=== PATIENT | female | born 1950 | race Caucasian/White ===

== ENCOUNTER 2017-07-28 10:26 | Emergency (ER) | payer MEDICARE, MEDICAID ==
[~2017-07-28] VITALS: Ht 167.6 cm; Wt 64.5 kg
[~2017-07-28 10:26] MED LIST: BISA5TAB10 PO; BUSP10TA10 PO; CHOL100046 PO; CLON1TAB4 PO; DOCU250C96 PO; FLO0.1T PO; MELA3TAB PO; METO25TA6 PO; MILN50TA PO; NAPR-56 PO; NITR0.4T48 SL; NITR0.4T51 SL; OLAN5TAB29 PO; PANT40TA4 PO; POLY17PO10 PO; SUMA25TA9 PO; TOP25T PO; TRAM50TA2 PO; TRAZ-146 PO; VALA500T37 PO; [UNRECOGNIZED DRUG - OTHER] PEG
[2017-07-28 11:02] LABS: BASOPHILS % (AUTO) 0.6 % (0-1); EOSINOPHILS % (AUTO) 0.4 % (0-6); HEMATOCRIT 34.4 % (35.0-45.0); HEMOGLOBIN 11.4 g/dl (12.0-16.0); LYMPHOCYTES # (AUTO) 1.4 X10'3 (1.1-4.8); LYMPHOCYTES % (AUTO) 25.7 % (21-51); MEAN CORPUSCULAR HEMOGLOBIN 26.8 PG (27.0-31.0); MEAN CORPUSCULAR HGB CONC 33.2 % (33.0-36.5); MEAN CORPUSCULAR VOLUME 80.9 FL (78-98); MEAN PLATELET VOLUME 7.9 FL (7.4-10.4); MONOCYTES # (AUTO) 0.3 X10'3 (0-0.9); MONOCYTES % (AUTO) 6.4 % (2-12); NEUTROPHILS # (AUTO) 3.6 X10'3 (1.8-7.7); NEUTROPHILS % (AUTO) 66.9 % (42-75); PLATELET COUNT 184 X10'3 (140-440); RED BLOOD COUNT 4.26 X10'6 (4.20-5.60); RED CELL DISTRIBUTION WIDTH 15.6 % (11.5-14.5); WHITE BLOOD COUNT 5.4 X10'3 (4.5-11.0)
[2017-07-28 11:13] LABS: PARTIAL THROMBOPLASTIN TIME 25 SECONDS (22-32); PROTHROMBIN TIME 10.4 SECONDS (9.0-12.0)
[2017-07-28 11:19] LABS: ALANINE AMINOTRANSFERASE 38 U/L (12-78); ALBUMIN 3.7 G/DL (3.4-5.0); ALBUMIN/GLOBULIN RATIO 1.2 (1.1-1.5); ALKALINE PHOSPHATASE 78 IU/L (46-116); ANION GAP 12 (8-16); ASPARTATE AMINO TRANSFERASE 29 U/L (10-37); BILIRUBIN,TOTAL 0.2 MG/DL (0.1-1.0); BLOOD UREA NITROGEN 13 MG/DL (7-18); BUN/CREATININE RATIO 15.9 (6.6-38.0); CALCIUM 8.8 MG/DL (8.5-10.1); CHLORIDE 108 MMOL/L (99-107); CREATININE 0.82 MG/DL (0.40-0.90); GLUCOSE 150 MG/DL (70-104); POTASSIUM 3.4 MMOL/L (3.5-5.1); SODIUM 142 MMOL/L (135-145); TOTAL CARBON DIOXIDE 22.3 MMOL/L (24-32); TOTAL PROTEIN 6.7 G/DL (6.4-8.2); eGFR 70 ML/MIN
[2017-07-28] MEDS ORDERED: clonazePAM 1mg tablet PO ONE (11:40)
[2017-07-28] MEDS ORDERED: CLON-527 PO (11:41)
[2017-07-28] MEDS ORDERED: acetaminophen 325mg tablet PO ONE (13:00)
[2017-07-28 13:27] VITALS: BP 113/77
== END 2017-07-28 13:38 | disposition home or self-care (01) ==
LOC: ER 10:27
DX: S81.811A Laceration without foreign body, right lower leg, initial encounter (principal); R07.89 Other chest pain; F19.239 Other psychoactive substance dependence with withdrawal, unspecified; G62.9 Polyneuropathy, unspecified; I25.10 Atherosclerotic heart disease of native coronary artery without angina pectoris; I10 Essential (primary) hypertension; J44.9 Chronic obstructive pulmonary disease, unspecified; K21.9 Gastro-esophageal reflux disease without esophagitis; G89.29 Other chronic pain; Z86.73 Personal history of transient ischemic attack (TIA), and cerebral infarction without residual deficits; Z98.890 Other specified postprocedural states; Z87.442 Personal history of urinary calculi; Z79.899 Other long term (current) drug therapy; Z88.8 Allergy status to other drugs, medicaments and biological substances; Z88.2 Allergy status to sulfonamides; Z88.5 Allergy status to narcotic agent; Z88.6 Allergy status to analgesic agent; Z91.013 Allergy to seafood; W19.XXXA Unspecified fall, initial encounter; Y93.89 Activity, other specified; Y92.099 Unspecified place in other non-institutional residence as the place of occurrence of the external cause; Y99.9 Unspecified external cause status
CPT/HCPCS: 12002; 36415; 71045; 80053; 84484; 85025; 85610; 85730; 93005; 99285; A6449

== ENCOUNTER 2017-08-06 17:58 | Emergency (ER) | payer MEDICARE, MEDICAID ==
[~2017-08-06] VITALS: Ht 167.6 cm; Wt 73.3 kg
[~2017-08-06 17:58] MED LIST changes: +CLON-527 PO
[2017-08-06 19:18] LABS: CLARITY,URINE CLEAR (Clear); COLOR,URINE STRAW (Yellow); GLUCOSE, URINE NEGATIVE (Neg); KETONES,URINE NEGATIVE (Neg); LEUKOCYTE ESTERASE ,URINE NEGATIVE (Neg); NITRITES, URINE NEGATIVE (Neg); OCCULT BLOOD,URINE NEGATIVE (Neg); PH,URINE 5.5 (4.8-8.0); PROTEIN,URINE NEGATIVE (Neg); UA COLLECTION TYPE FOLEY CATH; UROBILINOGEN,URINE 0.2 E.U/dL (0.2-1.0)
[2017-08-06] MEDS ORDERED: acetaminophen 325mg tablet PO ONE (19:55)
[2017-08-06 20:04] VITALS: BP 135/64
== END 2017-08-06 20:06 | disposition home or self-care (01) ==
LOC: ER 17:59
DX: R33.9 Retention of urine, unspecified (principal); J02.9 Acute pharyngitis, unspecified; G62.9 Polyneuropathy, unspecified; I25.10 Atherosclerotic heart disease of native coronary artery without angina pectoris; I10 Essential (primary) hypertension; J44.9 Chronic obstructive pulmonary disease, unspecified; K21.9 Gastro-esophageal reflux disease without esophagitis; G89.29 Other chronic pain; Z86.73 Personal history of transient ischemic attack (TIA), and cerebral infarction without residual deficits; Z87.442 Personal history of urinary calculi; Z98.890 Other specified postprocedural states; Z79.899 Other long term (current) drug therapy; Z88.8 Allergy status to other drugs, medicaments and biological substances; Z88.6 Allergy status to analgesic agent; Z88.2 Allergy status to sulfonamides; Z88.5 Allergy status to narcotic agent; Z91.013 Allergy to seafood
CPT/HCPCS: 51702; 81003; 99284; A4315

== ENCOUNTER 2017-11-18 17:21 | Emergency (ER) | payer MEDICARE, MEDICAID ==
[~2017-11-18] VITALS: Ht 167.6 cm; Wt 76.8 kg
[2017-11-18] MEDS ORDERED: DOXE50CA4 PO (20:34)
[2017-11-18] MEDS ORDERED: metoclopramide 5 mg/ml inj IM ONE (21:15)
[2017-11-18] MEDS ORDERED: diphenhydrAMINE 50 mg/ml inj IM ONE (21:15)
[2017-11-18] MEDS ORDERED: benztropine 1mg tablet PO ONE (22:15)
[2017-11-18] MEDS ORDERED: SUMAtriptan succ. 6 MG/0.5ml vial SQ ONE (23:05)
[2017-11-18 23:35] VITALS: BP 145/74
[2017-11-18] MEDS ORDERED: LORazepam 1 MG tablet PO ONE (23:50)
== END 2017-11-19 01:19 | disposition home or self-care (01) ==
LOC: ER 17:22
DX: R51 Headache (principal); G62.9 Polyneuropathy, unspecified; I10 Essential (primary) hypertension; I25.10 Atherosclerotic heart disease of native coronary artery without angina pectoris; J44.9 Chronic obstructive pulmonary disease, unspecified; K21.9 Gastro-esophageal reflux disease without esophagitis; G89.29 Other chronic pain; Z87.442 Personal history of urinary calculi; Z86.73 Personal history of transient ischemic attack (TIA), and cerebral infarction without residual deficits; Z98.890 Other specified postprocedural states; Z85.9 Personal history of malignant neoplasm, unspecified; Z60.2 Problems related to living alone; Z88.8 Allergy status to other drugs, medicaments and biological substances; Z88.2 Allergy status to sulfonamides; Z88.5 Allergy status to narcotic agent; Z91.013 Allergy to seafood; Z79.899 Other long term (current) drug therapy
CPT/HCPCS: 70450; 93005; 96372; 99284; J1200; J2765; J3030

== ENCOUNTER 2018-05-06 16:27 | Emergency (ER) | payer MEDICARE, MEDICAID ==
[~2018-05-06] VITALS: Ht 167.6 cm; Wt 73.6 kg
[~2018-05-06 16:27] MED LIST changes: +ACET-2144 PO; -BISA5TAB10 PO; -BUSP10TA10 PO; +BUSP30TA3; +CHOL10002 PO; -CHOL100046 PO; -CLON1TAB4 PO; +DOXE50CA4 PO; +MELO-102 PO; -NAPR-56 PO; -NITR0.4T48 SL; +OLAN10TA19 PO; -OLAN5TAB29 PO; +OMEP40CA37 PO; -PANT40TA4 PO; -POLY17PO10 PO; +SUMA25TA35 PO; -SUMA25TA9 PO; -TOP25T PO; -TRAM50TA2 PO; -TRAZ-146 PO; -[UNRECOGNIZED DRUG - OTHER] PEG
[2018-05-06] MEDS ORDERED: albuterol 1.25 MG/3 ML (1/2 strength) nebule NEB ONE (17:05)
[2018-05-06 17:10] LABS: ALANINE AMINOTRANSFERASE 22 U/L (12-78); ALBUMIN 3.1 G/DL (3.4-5.0); ALBUMIN/GLOBULIN RATIO 0.7 (1.1-1.5); ALKALINE PHOSPHATASE 282 IU/L (46-116); ANION GAP 13 (8-16); ASPARTATE AMINO TRANSFERASE 30 U/L (10-37); BILIRUBIN,TOTAL 0.4 MG/DL (0.1-1.0); BLOOD UREA NITROGEN 10 MG/DL (7-18); BUN/CREATININE RATIO 10.8 (6.6-38.0); CALCIUM 9.3 MG/DL (8.5-10.1); CHLORIDE 106 MMOL/L (99-107); CREATININE 0.93 MG/DL (0.40-0.90); GLUCOSE 139 MG/DL (70-104); POTASSIUM 4.1 MMOL/L (3.5-5.1); SODIUM 142 MMOL/L (135-145); TOTAL CARBON DIOXIDE 23.4 MMOL/L (24-32); TOTAL PROTEIN 7.4 G/DL (6.4-8.2); eGFR 61 ML/MIN
[2018-05-06 17:13] LABS: BASOPHILS % (AUTO) 0.2 % (0-1); EOSINOPHILS # (AUTO) 0.1 X10'3 (0-0.9); EOSINOPHILS % (AUTO) 0.4 % (0-6); HEMATOCRIT 30.1 % (35.0-45.0); HEMOGLOBIN 9.6 g/dl (12.0-16.0); LYMPHOCYTES # (AUTO) 0.8 X10'3 (1.1-4.8); LYMPHOCYTES % (AUTO) 5.9 % (21-51); MEAN CORPUSCULAR HEMOGLOBIN 23.7 PG (27.0-31.0); MEAN CORPUSCULAR HGB CONC 31.8 % (33.0-36.5); MEAN CORPUSCULAR VOLUME 74.6 FL (78-98); MEAN PLATELET VOLUME 7.5 FL (7.4-10.4); MONOCYTES # (AUTO) 0.3 X10'3 (0-0.9); MONOCYTES % (AUTO) 2.4 % (2-12); NEUTROPHILS # (AUTO) 12.3 X10'3 (1.8-7.7); NEUTROPHILS % (AUTO) 91.1 % (42-75); PLATELET COUNT 320 X10'3 (140-440); RED BLOOD COUNT 4.04 X10'6 (4.20-5.60); RED CELL DISTRIBUTION WIDTH 18.9 % (11.5-14.5); WHITE BLOOD COUNT 13.5 X10'3 (4.5-11.0)
[2018-05-06 17:16] LABS: PARTIAL THROMBOPLASTIN TIME 29 SECONDS (22-32); PROTHROMBIN TIME 9.9 SECONDS (9.0-12.0)
[2018-05-06] MEDS ORDERED: albuterol 2.5 MG/3 ML nebule NEB ONE (17:20)
[2018-05-06] MEDS ORDERED: diphenhydrAMINE 50 mg/ml inj IV ONE (18:45)
[2018-05-06] MEDS ORDERED: normal saline 1000ML IV soln IVB ONE (18:45)
[2018-05-06] MEDS ORDERED: LEVO500T89 PO (18:58)
[2018-05-06 19:34] VITALS: BP 132/72
== END 2018-05-06 19:35 | disposition home or self-care (01) ==
LOC: ER 16:28
DX: J18.9 Pneumonia, unspecified organism (principal); R51 Headache; I10 Essential (primary) hypertension; I25.10 Atherosclerotic heart disease of native coronary artery without angina pectoris; J44.9 Chronic obstructive pulmonary disease, unspecified; K21.9 Gastro-esophageal reflux disease without esophagitis; G89.29 Other chronic pain; Z86.73 Personal history of transient ischemic attack (TIA), and cerebral infarction without residual deficits; Z88.2 Allergy status to sulfonamides; Z91.013 Allergy to seafood; Z88.5 Allergy status to narcotic agent; Z88.6 Allergy status to analgesic agent; Z88.8 Allergy status to other drugs, medicaments and biological substances; Z79.2 Long term (current) use of antibiotics; Z79.899 Other long term (current) drug therapy; Z60.2 Problems related to living alone
CPT/HCPCS: 36415; 70450; 71045; 80053; 84484; 85025; 85610; 85730; 93005; 94760; 99285

== ENCOUNTER 2018-05-10 15:05 | Inpatient (IN) | payer MEDICARE, MEDICAID ==
[~2018-05-10] VITALS: Ht 167.6 cm; Wt 74.0 kg
[~2018-05-10 15:05] MED LIST changes: +LEVO500T89 PO
[2018-05-10 15:45] LABS: BASOPHILS % (AUTO) 0.2 % (0-1); EOSINOPHILS # (AUTO) 0.2 X10'3 (0-0.9); EOSINOPHILS % (AUTO) 1.2 % (0-6); HEMATOCRIT 27.5 % (35.0-45.0); HEMOGLOBIN 8.6 g/dl (12.0-16.0); LYMPHOCYTES # (AUTO) 0.7 X10'3 (1.1-4.8); MEAN CORPUSCULAR HEMOGLOBIN 23.1 PG (27.0-31.0); MEAN CORPUSCULAR HGB CONC 31.1 % (33.0-36.5); MEAN CORPUSCULAR VOLUME 74.3 FL (78-98); MEAN PLATELET VOLUME 6.7 FL (7.4-10.4); MONOCYTES # (AUTO) 0.4 X10'3 (0-0.9); MONOCYTES % (AUTO) 2.9 % (2-12); NEUTROPHILS % (AUTO) 90.7 % (42-75); PLATELET COUNT 380 X10'3 (140-440); RED CELL DISTRIBUTION WIDTH 20.7 % (11.5-14.5); WHITE BLOOD COUNT 13.3 X10'3 (4.5-11.0)
[2018-05-10] MEDS ORDERED: albuterol 2.5 MG/3 ML nebule NEB ONE (16:00)
[2018-05-10 16:02] LABS: ALBUMIN 2.3 G/DL (3.4-5.0); ALBUMIN/GLOBULIN RATIO 0.5 (1.1-1.5); ALKALINE PHOSPHATASE 267 IU/L (46-116); ANION GAP 11 (8-16); ASPARTATE AMINO TRANSFERASE 24 U/L (10-37); BILIRUBIN,TOTAL 0.3 MG/DL (0.1-1.0); BLOOD UREA NITROGEN 18 MG/DL (7-18); BUN/CREATININE RATIO 20.2 (6.6-38.0); CALCIUM 8.5 MG/DL (8.5-10.1); CHLORIDE 105 MMOL/L (99-107); CREATININE 0.89 MG/DL (0.40-0.90); GLUCOSE 156 MG/DL (70-104); SODIUM 140 MMOL/L (135-145); TOTAL CARBON DIOXIDE 23.6 MMOL/L (24-32); TOTAL PROTEIN 6.6 G/DL (6.4-8.2); eGFR 64 ML/MIN
[2018-05-10 16:03] LABS: ELLIPTOCYTES FEW; INR 1.2 INR; PARTIAL THROMBOPLASTIN TIME 26 SECONDS (22-32); PLATELET ESTIMATE NORMAL; POLYCHROMASIA FEW; PROTHROMBIN TIME 12.1 SECONDS (9.0-12.0); TEAR DROP CELLS FEW
[2018-05-10 16:04] LABS: HYPOCHROMASIA 1+
[2018-05-10 16:10] LABS: ALANINE AMINOTRANSFERASE 8 U/L (12-78)
[2018-05-10] MEDS ORDERED: potassium Cl 40MEQ/NS 500ml 500 ML IV PRN ×2 (16:30)
[2018-05-10] MEDS ORDERED: magnesium Cl slow-release 64mg tablet PO PRN (16:30)
[2018-05-10] MEDS ORDERED: magnesium 1gm/100ml D5W IVPB 100 ML IV PRN (16:30)
[2018-05-10] MEDS ORDERED: potassium Cl 20 mEq SR tablet PO PRN ×2 (16:30)
[2018-05-10] MEDS ORDERED: magnesium 4gm in 100ml NS 100 ML IV PRN (16:30)
[2018-05-10] MEDS: K and/or MAG REPLACEMENT MC SCH (16:30)
[2018-05-10] MEDS: normal saline 1000ml 1,000 ML IV SCH (16:55)
[2018-05-10] MEDS: acetaminophen 325mg tablet PO PRN (16:56)
[2018-05-10 17:02] LABS: D-DIMER 0.91 MG/L FEU (0-0.50)
[2018-05-10] MEDS: CefTRIAXone/D5W-Rocephin 1gm 50 ML IV SCH (17:06)
[2018-05-10] MEDS: azithromycin/NS 500mg/250ml 250 ML IV SCH (17:56)
[2018-05-10 19:10] VITALS: BP 114/40
[2018-05-10] MEDS ORDERED: FLUO40CA PO (20:04)
[2018-05-10] MEDS ORDERED: OLAN5TAB29 PO (20:04)
[2018-05-10] MEDS ORDERED: BUSP15TA12 PO (20:04)
[2018-05-10] MEDS ORDERED: CARB-87 PO (20:05)
[2018-05-10] MEDS ORDERED: DOXE100C21 PO (20:05)
[2018-05-10] MEDS: heparin, porcine 5000 units/ml vial SQ SCH (20:09)
[2018-05-10] MEDS: SUMAtriptan 25 MG tablet PO PRN (21:36)
[2018-05-10] MEDS: HYDROmorphone 1 mg/ml syringe IV PRN (23:04)
[2018-05-11 00:01] VITALS: BP 122/55
[2018-05-11] MEDS: doxepin 25mg capsule PO SCH ×2 (00:30→21:17)
[2018-05-11] MEDS: carbidoba-levodopa 25-100mg tablet PO SCH ×4 (00:31→21:20)
[2018-05-11] MEDS: clonazePAM 1mg tablet PO SCH ×4 (00:31→21:19)
[2018-05-11] MEDS: ipratropium/albuterol 3ml nebule NEB PRN ×3 (02:24→19:05)
[2018-05-11 02:40] VITALS: BP 117/45
[2018-05-11] MEDS: normal saline 1000ml 1,000 ML IV SCH ×3 (04:33→18:42)
[2018-05-11] MEDS: HYDROmorphone 1 mg/ml syringe IV PRN ×2 (04:47→15:07)
[2018-05-11 06:45] LABS: BASOPHILS % (AUTO) 0.2 % (0-1); EOSINOPHILS # (AUTO) 0.3 X10'3 (0-0.9); EOSINOPHILS % (AUTO) 2.9 % (0-6); HEMATOCRIT 25.4 % (35.0-45.0); HEMOGLOBIN 7.9 g/dl (12.0-16.0); LYMPHOCYTES # (AUTO) 1.3 X10'3 (1.1-4.8); LYMPHOCYTES % (AUTO) 13.5 % (21-51); MEAN CORPUSCULAR HEMOGLOBIN 23.1 PG (27.0-31.0); MEAN CORPUSCULAR HGB CONC 31.1 % (33.0-36.5); MEAN CORPUSCULAR VOLUME 74.4 FL (78-98); MEAN PLATELET VOLUME 6.7 FL (7.4-10.4); MONOCYTES # (AUTO) 0.4 X10'3 (0-0.9); MONOCYTES % (AUTO) 4.3 % (2-12); NEUTROPHILS # (AUTO) 7.6 X10'3 (1.8-7.7); NEUTROPHILS % (AUTO) 79.1 % (42-75); PLATELET COUNT 359 X10'3 (140-440); RED BLOOD COUNT 3.42 X10'6 (4.20-5.60); RED CELL DISTRIBUTION WIDTH 20.1 % (11.5-14.5); WHITE BLOOD COUNT 9.6 X10'3 (4.5-11.0)
[2018-05-11 06:52] LABS: ANION GAP 12 (8-16); BLOOD UREA NITROGEN 8 MG/DL (7-18); BUN/CREATININE RATIO 10.5 (6.6-38.0); CALCIUM 8.4 MG/DL (8.5-10.1); CHLORIDE 110 MMOL/L (99-107); CREATININE 0.76 MG/DL (0.40-0.90); GLUCOSE 105 MG/DL (70-104); MAGNESIUM 1.9 MG/DL (1.5-2.4); POTASSIUM 3.7 MMOL/L (3.5-5.1); SODIUM 145 MMOL/L (135-145); TOTAL CARBON DIOXIDE 23.1 MMOL/L (24-32); eGFR 76 ML/MIN
[2018-05-11 07:27] LABS: ANISOCYTOSIS 2+; ELLIPTOCYTES FEW; PLATELET ESTIMATE NORMAL
[2018-05-11] MEDS ORDERED: OLANZapine 5mg rapidly disint. tablet PO SCH (08:00)
[2018-05-11] MEDS: K and/or MAG REPLACEMENT MC SCH (08:00)
[2018-05-11 08:04] VITALS: BP 125/54
[2018-05-11] MEDS: CefTRIAXone/D5W-Rocephin 1gm 50 ML IV SCH (08:47)
[2018-05-11] MEDS: metoprolol tartrate 25mg tablet PO SCH (08:52)
[2018-05-11] MEDS: busPIRone 15mg tablet PO SCH ×2 (08:53→21:19)
[2018-05-11] MEDS: FLUoxetine 20mg capsule PO SCH (08:54)
[2018-05-11] MEDS: heparin, porcine 5000 units/ml vial SQ SCH ×2 (08:57→21:21)
[2018-05-11] MEDS: pantoprazole 40mg Tablet.DR PO SCH (10:34)
[2018-05-11] MEDS: azithromycin/NS 500mg/250ml 250 ML IV SCH (10:36)
[2018-05-11] MEDS: traMADol 50MG tablet PO PRN ×2 (10:36→18:42)
[2018-05-11 12:13] VITALS: BP 97/43
[2018-05-11 13:22] VITALS: BP 154/104
[2018-05-11 16:45] LABS: ABG BASE EXCESS -2.6 mmol/L (-2.0-3.0); ABG HCO3 21.3 mmol/L (22.0-26.0); ABG OXYGEN SATURATION 93.9 % (95-98); ABG PCO2 (T) 33.4 mmHg (32.0-45.0); ABG PH (T) 7.423 (7.350-7.450); ABG PO2 (T) 71.2 mmHg (83-108); ALLEN'S TEST Positive; FCOHb 0.5 % (0.5-1.5); FLOW 2 L/min; FMetHb 0.3 % (0.3-1.12); FO2Hb 93.1 % (94-100); TOTAL HEMOGLOBIN 8.7 G/dl (12.0-16.0)
[2018-05-11] MEDS: acetaminophen 325mg tablet PO PRN (17:03)
[2018-05-11 20:00] VITALS: BP 102/42
[2018-05-11] MEDS: lactobacillus rhamnosus 10,000 MMU CELLS/CAPSULE PO SCH (21:15)
[2018-05-11] MEDS: OLANZapine 5mg rapidly disint. tablet PO SCH (21:21)
[2018-05-11] MEDS ORDERED: methylPREDNISolone sod succ/PF 40mg inj. IV ONE (22:30)
[2018-05-12] VITALS: BP 111/50
[2018-05-12] MEDS: ipratropium/albuterol 3ml nebule NEB PRN ×3 (01:29→19:05)
[2018-05-12] MEDS: piperacillin/tazo 3.375gm/50ml 50 ML IV SCH ×4 (01:30→21:28)
[2018-05-12] MEDS: HYDROmorphone 1 mg/ml syringe IV PRN ×3 (05:53→17:08)
[2018-05-12] MEDS: normal saline 1000ml 1,000 ML IV SCH ×2 (05:53→21:16)
[2018-05-12 06:11] LABS: BASOPHILS % (AUTO) 0 % (0-1); EOSINOPHILS % (AUTO) 0 % (0-6); HEMATOCRIT 25.9 % (35.0-45.0); HEMOGLOBIN 8.1 g/dl (12.0-16.0); LYMPHOCYTES # (AUTO) 0.5 X10'3 (1.1-4.8); LYMPHOCYTES % (AUTO) 5.1 % (21-51); MEAN CORPUSCULAR HGB CONC 31.1 % (33.0-36.5); MEAN PLATELET VOLUME 6.9 FL (7.4-10.4); MONOCYTES % (AUTO) 0.5 % (2-12); NEUTROPHILS # (AUTO) 9.2 X10'3 (1.8-7.7); NEUTROPHILS % (AUTO) 94.4 % (42-75); PLATELET COUNT 418 X10'3 (140-440); RED BLOOD COUNT 3.51 X10'6 (4.20-5.60); RED CELL DISTRIBUTION WIDTH 20.3 % (11.5-14.5); WHITE BLOOD COUNT 9.8 X10'3 (4.5-11.0)
[2018-05-12 06:18] LABS: ANION GAP 12 (8-16); BLOOD UREA NITROGEN 6 MG/DL (7-18); BUN/CREATININE RATIO 8.7 (6.6-38.0); CALCIUM 8.4 MG/DL (8.5-10.1); CHLORIDE 106 MMOL/L (99-107); CREATININE 0.69 MG/DL (0.40-0.90); GLUCOSE 178 MG/DL (70-104); MAGNESIUM 1.8 MG/DL (1.5-2.4); POTASSIUM 3.7 MMOL/L (3.5-5.1); SODIUM 140 MMOL/L (135-145); TOTAL CARBON DIOXIDE 22.1 MMOL/L (24-32); eGFR 85 ML/MIN
[2018-05-12] MEDS: K and/or MAG REPLACEMENT MC SCH (07:30)
[2018-05-12 07:41] LABS: ANISOCYTOSIS 2+; PLATELET ESTIMATE NORMAL
[2018-05-12 07:42] LABS: HYPOCHROMASIA 1+
[2018-05-12] MEDS: metoprolol tartrate 25mg tablet PO SCH (07:55)
[2018-05-12] MEDS: clonazePAM 1mg tablet PO SCH ×3 (07:55→21:15)
[2018-05-12] MEDS: busPIRone 15mg tablet PO SCH ×2 (07:55→21:14)
[2018-05-12] MEDS: carbidoba-levodopa 25-100mg tablet PO SCH ×3 (07:56→21:15)
[2018-05-12] MEDS: lactobacillus rhamnosus 10,000 MMU CELLS/CAPSULE PO SCH ×2 (07:56→21:14)
[2018-05-12] MEDS: pantoprazole 40mg Tablet.DR PO SCH (07:56)
[2018-05-12] MEDS: heparin, porcine 5000 units/ml vial SQ SCH ×2 (07:57→21:16)
[2018-05-12] MEDS: FLUoxetine 20mg capsule PO SCH (07:57)
[2018-05-12 08:10] VITALS: BP 105/42
[2018-05-12] MEDS: CefTRIAXone/D5W-Rocephin 1gm 50 ML IV SCH (08:29)
[2018-05-12] MEDS: azithromycin/NS 500mg/250ml 250 ML IV SCH (09:08)
[2018-05-12 11:00] VITALS: BP 101/50
[2018-05-12] MEDS: traMADol 50MG tablet PO PRN ×2 (13:21→21:40)
[2018-05-12 14:03] VITALS: BP 100/45
[2018-05-12] MEDS: methylPREDNISolone sod succ 125mg/2ml vial IV SCH (17:07)
[2018-05-12 20:00] VITALS: BP 105/56
[2018-05-12] MEDS: OLANZapine 5mg rapidly disint. tablet PO SCH (21:15)
[2018-05-12] MEDS: doxepin 25mg capsule PO SCH (21:24)
[2018-05-12] MEDS ORDERED: LORazepam 2 mg/ml vial IV PRN (22:15)
[2018-05-13] VITALS: BP 123/67
[2018-05-13] MEDS: piperacillin/tazo 3.375gm/50ml 50 ML IV SCH ×4 (01:12→19:57)
[2018-05-13] MEDS: methylPREDNISolone sod succ 125mg/2ml vial IV SCH ×3 (01:12→16:10)
[2018-05-13] MEDS: ipratropium/albuterol 3ml nebule NEB PRN ×2 (03:25→21:05)
[2018-05-13] MEDS: normal saline 1000ml 1,000 ML IV SCH ×2 (04:29→12:01)
[2018-05-13] MEDS: HYDROmorphone 1 mg/ml syringe IV PRN ×2 (04:38→12:27)
[2018-05-13 05:40] LABS: BASOPHILS % (AUTO) 0 % (0-1); EOSINOPHILS % (AUTO) 0 % (0-6); HEMATOCRIT 27.7 % (35.0-45.0); HEMOGLOBIN 8.6 g/dl (12.0-16.0); LYMPHOCYTES # (AUTO) 0.5 X10'3 (1.1-4.8); LYMPHOCYTES % (AUTO) 3.9 % (21-51); MEAN CORPUSCULAR HEMOGLOBIN 23.1 PG (27.0-31.0); MEAN CORPUSCULAR VOLUME 74.5 FL (78-98); MEAN PLATELET VOLUME 6.6 FL (7.4-10.4); MONOCYTES % (AUTO) 0.3 % (2-12); NEUTROPHILS # (AUTO) 12.6 X10'3 (1.8-7.7); NEUTROPHILS % (AUTO) 95.8 % (42-75); PLATELET COUNT 431 X10'3 (140-440); RED BLOOD COUNT 3.71 X10'6 (4.20-5.60); RED CELL DISTRIBUTION WIDTH 20.7 % (11.5-14.5); WHITE BLOOD COUNT 13.2 X10'3 (4.5-11.0)
[2018-05-13 06:20] LABS: ANION GAP 14 (8-16); BLOOD UREA NITROGEN 9 MG/DL (7-18); BUN/CREATININE RATIO 11.5 (6.6-38.0); CALCIUM 8.7 MG/DL (8.5-10.1); CHLORIDE 107 MMOL/L (99-107); CREATININE 0.78 MG/DL (0.40-0.90); GLUCOSE 213 MG/DL (70-104); POTASSIUM 3.7 MMOL/L (3.5-5.1); SODIUM 143 MMOL/L (135-145); eGFR 74 ML/MIN
[2018-05-13 06:27] LABS: ANISOCYTOSIS 3+; PLATELET ESTIMATE NORMAL
[2018-05-13 06:28] LABS: ELLIPTOCYTES FEW
[2018-05-13 07:28] VITALS: BP 116/57
[2018-05-13] MEDS: K and/or MAG REPLACEMENT MC SCH (08:00)
[2018-05-13] MEDS: clonazePAM 1mg tablet PO SCH ×3 (09:31→20:50)
[2018-05-13] MEDS: pantoprazole 40mg Tablet.DR PO SCH (09:31)
[2018-05-13] MEDS: lactobacillus rhamnosus 10,000 MMU CELLS/CAPSULE PO SCH ×2 (09:31→20:51)
[2018-05-13] MEDS: FLUoxetine 20mg capsule PO SCH (09:33)
[2018-05-13] MEDS: carbidoba-levodopa 25-100mg tablet PO SCH ×3 (09:34→20:50)
[2018-05-13] MEDS: busPIRone 15mg tablet PO SCH ×2 (09:34→20:51)
[2018-05-13] MEDS: heparin, porcine 5000 units/ml vial SQ SCH ×2 (09:36→20:52)
[2018-05-13] MEDS: metoprolol tartrate 25mg tablet PO SCH (09:39)
[2018-05-13] MEDS: traMADol 50MG tablet PO PRN ×2 (09:56→21:01)
[2018-05-13] MEDS: CefTRIAXone/D5W-Rocephin 1gm 50 ML IV SCH (11:03)
[2018-05-13 11:44] VITALS: BP 131/47
[2018-05-13] MEDS: azithromycin/NS 500mg/250ml 250 ML IV SCH (12:01)
[2018-05-13] MEDS: acetaminophen 325mg tablet PO PRN (17:48)
[2018-05-13] MEDS: SUMAtriptan 25 MG tablet PO PRN (19:57)
[2018-05-13 20:00] VITALS: BP 116/54
[2018-05-13] MEDS: doxepin 25mg capsule PO SCH (20:51)
[2018-05-13] MEDS: OLANZapine 5mg rapidly disint. tablet PO SCH (20:51)
[2018-05-14] VITALS: BP 123/67
[2018-05-14] MEDS ORDERED: LIDOcaine 5% patch TP SCH
[2018-05-14] MEDS: piperacillin/tazo 3.375gm/50ml 50 ML IV SCH ×4 (02:00→19:59)
[2018-05-14] MEDS ORDERED: prednisone 10mg tablet PO ONE (04:50)
[2018-05-14 07:36] VITALS: BP 134/63
[2018-05-14] MEDS: K and/or MAG REPLACEMENT MC SCH (08:00)
[2018-05-14] MEDS: metoprolol tartrate 25mg tablet PO SCH (10:24)
[2018-05-14] MEDS: pantoprazole 40mg Tablet.DR PO SCH (10:24)
[2018-05-14] MEDS: lactobacillus rhamnosus 10,000 MMU CELLS/CAPSULE PO SCH ×2 (10:24→20:00)
[2018-05-14] MEDS: carbidoba-levodopa 25-100mg tablet PO SCH ×3 (10:25→20:49)
[2018-05-14] MEDS: clonazePAM 1mg tablet PO SCH ×3 (10:25→20:49)
[2018-05-14] MEDS: busPIRone 15mg tablet PO SCH ×2 (10:25→20:00)
[2018-05-14] MEDS: FLUoxetine 20mg capsule PO SCH (10:26)
[2018-05-14] MEDS: heparin, porcine 5000 units/ml vial SQ SCH ×2 (10:27→20:02)
[2018-05-14] MEDS: methylPREDNISolone sod succ 125mg/2ml vial IV SCH ×3 (10:28→17:28)
[2018-05-14 11:17] LABS: ALBUMIN 2.4 G/DL (3.4-5.0); ANION GAP 13 (8-16); BLOOD UREA NITROGEN 14 MG/DL (7-18); BUN/CREATININE RATIO 18.4 (6.6-38.0); CALCIUM 9.1 MG/DL (8.5-10.1); CHLORIDE 106 MMOL/L (99-107); CREATININE 0.76 MG/DL (0.40-0.90); GLUCOSE 169 MG/DL (70-104); MAGNESIUM 2.2 MG/DL (1.5-2.4); POTASSIUM 3.7 MMOL/L (3.5-5.1); SODIUM 141 MMOL/L (135-145); eGFR 76 ML/MIN
[2018-05-14 11:20] LABS: HEMATOCRIT 33.3 % (35.0-45.0); HEMOGLOBIN 10.2 g/dl (12.0-16.0); MEAN CORPUSCULAR HEMOGLOBIN 22.8 PG (27.0-31.0); MEAN CORPUSCULAR HGB CONC 30.7 % (33.0-36.5); MEAN CORPUSCULAR VOLUME 74.3 FL (78-98); MEAN PLATELET VOLUME 7.4 FL (7.4-10.4); PLATELET COUNT 460 X10'3 (140-440); RED BLOOD COUNT 4.48 X10'6 (4.20-5.60); RED CELL DISTRIBUTION WIDTH 20.4 % (11.5-14.5); WHITE BLOOD COUNT 20.5 X10'3 (4.5-11.0)
[2018-05-14] MEDS: normal saline 1000ml 1,000 ML IV SCH ×2 (11:36→21:50)
[2018-05-14 11:45] VITALS: BP 121/66
[2018-05-14] MEDS: acetaminophen 325mg tablet PO PRN ×2 (11:47→20:01)
[2018-05-14] MEDS: CefTRIAXone/D5W-Rocephin 1gm 50 ML IV SCH (11:48)
[2018-05-14 12:37] LABS: TOTAL CELLS COUNTED 100
[2018-05-14 12:38] LABS: ANISOCYTOSIS 2+; PLATELET ESTIMATE INCREASED; POIKILOCYTOSIS 1+; POLYCHROMASIA FEW
[2018-05-14] MEDS: azithromycin/NS 500mg/250ml 250 ML IV SCH (13:01)
[2018-05-14] MEDS: traMADol 50MG tablet PO PRN ×2 (14:47→22:48)
[2018-05-14] MEDS: SUMAtriptan 25 MG tablet PO PRN (17:28)
[2018-05-14 19:00] VITALS: BP 119/53
[2018-05-14] MEDS: ipratropium/albuterol 3ml nebule NEB PRN (20:21)
[2018-05-14] MEDS: doxepin 25mg capsule PO SCH (20:48)
[2018-05-14] MEDS: OLANZapine 5mg rapidly disint. tablet PO SCH (20:50)
[2018-05-15] VITALS: BP 126/65
[2018-05-15] MEDS ORDERED: HYDROmorphone 1 mg/ml syringe IV PRN
[2018-05-15] MEDS: methylPREDNISolone sod succ 125mg/2ml vial IV SCH ×3 (00:09→16:06)
[2018-05-15] MEDS: piperacillin/tazo 3.375gm/50ml 50 ML IV SCH ×4 (02:01→19:44)
[2018-05-15] MEDS ORDERED: HYDROmorphone inj. 0.5 MG/0.5 ML DISP.SYRIN IV PRN (02:45)
[2018-05-15 03:00] VITALS: BP 126/65
[2018-05-15] MEDS: HYDROmorphone 1 mg/ml syringe IV PRN ×3 (03:03→19:33)
[2018-05-15 04:09] LABS: BASOPHILS % (AUTO) 0.1 % (0-1); EOSINOPHILS % (AUTO) 0 % (0-6); HEMATOCRIT 26.5 % (35.0-45.0); HEMOGLOBIN 8.2 g/dl (12.0-16.0); LYMPHOCYTES # (AUTO) 0.4 X10'3 (1.1-4.8); LYMPHOCYTES % (AUTO) 2.8 % (21-51); MEAN CORPUSCULAR HEMOGLOBIN 22.9 PG (27.0-31.0); MEAN CORPUSCULAR VOLUME 73.9 FL (78-98); MEAN PLATELET VOLUME 6.9 FL (7.4-10.4); MONOCYTES # (AUTO) 0.1 X10'3 (0-0.9); MONOCYTES % (AUTO) 0.9 % (2-12); NEUTROPHILS # (AUTO) 13.6 X10'3 (1.8-7.7); NEUTROPHILS % (AUTO) 96.2 % (42-75); PLATELET COUNT 412 X10'3 (140-440); RED BLOOD COUNT 3.59 X10'6 (4.20-5.60); RED CELL DISTRIBUTION WIDTH 20.1 % (11.5-14.5); WHITE BLOOD COUNT 14.1 X10'3 (4.5-11.0)
[2018-05-15 04:31] LABS: ANION GAP 10 (8-16); BLOOD UREA NITROGEN 14 MG/DL (7-18); BUN/CREATININE RATIO 18.2 (6.6-38.0); CALCIUM 8.3 MG/DL (8.5-10.1); CHLORIDE 105 MMOL/L (99-107); CREATININE 0.77 MG/DL (0.40-0.90); GLUCOSE 191 MG/DL (70-104); MAGNESIUM 2.1 MG/DL (1.5-2.4); POTASSIUM 3.5 MMOL/L (3.5-5.1); SODIUM 141 MMOL/L (135-145); TOTAL CARBON DIOXIDE 26.4 MMOL/L (24-32); TROPONIN I < 0.04 NG/ML (0.0-0.05); eGFR 75 ML/MIN
[2018-05-15 06:15] VITALS: BP 135/75
[2018-05-15] MEDS: pantoprazole 40mg Tablet.DR PO SCH (07:08)
[2018-05-15 07:55] LABS: ANISOCYTOSIS 2+; ELLIPTOCYTES FEW; MICROCYTOSIS 2+; PLATELET ESTIMATE NORMAL; POIKILOCYTOSIS FEW; POLYCHROMASIA 1+
[2018-05-15] MEDS: K and/or MAG REPLACEMENT MC SCH (08:00)
[2018-05-15] MEDS: CefTRIAXone/D5W-Rocephin 1gm 50 ML IV SCH (08:10)
[2018-05-15] MEDS: FLUoxetine 20mg capsule PO SCH (08:13)
[2018-05-15] MEDS: carbidoba-levodopa 25-100mg tablet PO SCH ×3 (08:13→21:25)
[2018-05-15] MEDS: lactobacillus rhamnosus 10,000 MMU CELLS/CAPSULE PO SCH ×2 (08:14→19:44)
[2018-05-15] MEDS: busPIRone 15mg tablet PO SCH ×2 (08:14→19:44)
[2018-05-15] MEDS: clonazePAM 1mg tablet PO SCH ×3 (08:14→21:24)
[2018-05-15] MEDS: metoprolol tartrate 25mg tablet PO SCH (08:30)
[2018-05-15] MEDS: heparin, porcine 5000 units/ml vial SQ SCH ×2 (08:31→19:46)
[2018-05-15] MEDS: azithromycin/NS 500mg/250ml 250 ML IV SCH (09:34)
[2018-05-15] MEDS: ondansetron/PF 4mg/2ml inj IV PRN (11:04)
[2018-05-15 12:30] VITALS: BP_SYST 115; BP_SYST 131; BP_DIAS 48; BP_DIAS 66
[2018-05-15] MEDS: ipratropium/albuterol 3ml nebule NEB PRN (19:10)
[2018-05-15 19:15] VITALS: BP 130/71
[2018-05-15] MEDS: doxepin 25mg capsule PO SCH (21:24)
[2018-05-15] MEDS: OLANZapine 5mg rapidly disint. tablet PO SCH (21:25)
[2018-05-15] MEDS: traMADol 50MG tablet PO PRN (22:43)
[2018-05-16] VITALS: BP 129/69
[2018-05-16] MEDS: methylPREDNISolone sod succ 125mg/2ml vial IV SCH ×3 (00:26→15:47)
[2018-05-16] MEDS: LIDOcaine 5% patch TP SCH (00:27)
[2018-05-16] MEDS: HYDROmorphone 1 mg/ml syringe IV PRN ×4 (00:43→19:29)
[2018-05-16] MEDS: normal saline 1000ml 1,000 ML IV SCH (00:45)
[2018-05-16 01:40] VITALS: BP 134/67
[2018-05-16] MEDS: piperacillin/tazo 3.375gm/50ml 50 ML IV SCH ×4 (01:55→19:27)
[2018-05-16] MEDS: pantoprazole 40mg Tablet.DR PO SCH (07:02)
[2018-05-16] MEDS: CefTRIAXone/D5W-Rocephin 1gm 50 ML IV SCH (07:24)
[2018-05-16] MEDS: heparin, porcine 5000 units/ml vial SQ SCH ×2 (07:31→19:28)
[2018-05-16 07:34] VITALS: BP 125/65
[2018-05-16] MEDS: K and/or MAG REPLACEMENT MC SCH (07:34)
[2018-05-16] MEDS: lactobacillus rhamnosus 10,000 MMU CELLS/CAPSULE PO SCH ×2 (08:41→19:27)
[2018-05-16] MEDS: busPIRone 15mg tablet PO SCH ×2 (08:41→19:27)
[2018-05-16] MEDS: clonazePAM 1mg tablet PO SCH ×3 (08:42→20:40)
[2018-05-16] MEDS: metoprolol tartrate 25mg tablet PO SCH (08:43)
[2018-05-16] MEDS: FLUoxetine 20mg capsule PO SCH (08:44)
[2018-05-16] MEDS: carbidoba-levodopa 25-100mg tablet PO SCH ×3 (08:44→20:40)
[2018-05-16 11:00] VITALS: BP 112/57
[2018-05-16] MEDS: traMADol 50MG tablet PO PRN (13:45)
[2018-05-16] MEDS: ipratropium/albuterol 3ml nebule NEB PRN (19:44)
[2018-05-16 20:00] VITALS: BP 133/66
[2018-05-16] MEDS: OLANZapine 5mg rapidly disint. tablet PO SCH (20:40)
[2018-05-16] MEDS: doxepin 25mg capsule PO SCH (20:40)
[2018-05-16] MEDS: ondansetron/PF 4mg/2ml inj IV PRN (21:43)
[2018-05-17] VITALS: BP 112/61
[2018-05-17] MEDS: methylPREDNISolone sod succ 125mg/2ml vial IV SCH ×3 (00:34→16:00)
[2018-05-17] MEDS: LIDOcaine 5% patch TP SCH (00:40)
[2018-05-17] MEDS: normal saline 1000ml 1,000 ML IV SCH (00:40)
[2018-05-17] MEDS: piperacillin/tazo 3.375gm/50ml 50 ML IV SCH ×3 (02:13→14:00)
[2018-05-17] MEDS: HYDROmorphone 1 mg/ml syringe IV PRN (02:43)
[2018-05-17] MEDS: traMADol 50MG tablet PO PRN (05:17)
[2018-05-17] MEDS: K and/or MAG REPLACEMENT MC SCH (06:58)
[2018-05-17 07:30] VITALS: BP 158/77
[2018-05-17] MEDS: pantoprazole 40mg Tablet.DR PO SCH (07:30)
[2018-05-17] MEDS: heparin, porcine 5000 units/ml vial SQ SCH ×2 (08:00→20:48)
[2018-05-17] MEDS: metoprolol tartrate 25mg tablet PO SCH (08:38)
[2018-05-17] MEDS: lactobacillus rhamnosus 10,000 MMU CELLS/CAPSULE PO SCH ×2 (08:39→20:48)
[2018-05-17] MEDS: clonazePAM 1mg tablet PO SCH ×3 (08:40→22:14)
[2018-05-17] MEDS: FLUoxetine 20mg capsule PO SCH (08:40)
[2018-05-17] MEDS: busPIRone 15mg tablet PO SCH ×2 (08:41→20:48)
[2018-05-17] MEDS: carbidoba-levodopa 25-100mg tablet PO SCH ×3 (08:41→20:48)
[2018-05-17 11:34] VITALS: BP 135/60
[2018-05-17] MEDS: acetaminophen 325mg tablet PO PRN ×2 (14:17→22:15)
[2018-05-17 16:07] VITALS: BP 102/57
[2018-05-17] MEDS: predniSONE 20 mg tablet PO SCH ×2 (17:00→17:14)
[2018-05-17] MEDS: nystatin 500,000 unit/5ML UD oral suspension PO SCH ×2 (17:22→22:15)
[2018-05-17 20:00] VITALS: BP 129/63
[2018-05-17] MEDS: OLANZapine 5mg rapidly disint. tablet PO SCH (20:48)
[2018-05-17 22:11] VITALS: BP 121/56
[2018-05-17] MEDS: doxepin 25mg capsule PO SCH (22:14)
[2018-05-18] VITALS: BP 118/51
[2018-05-18] MEDS: LIDOcaine 5% patch TP SCH (00:13)
[2018-05-18 07:30] VITALS: BP 126/60
[2018-05-18] MEDS: K and/or MAG REPLACEMENT MC SCH (08:00)
[2018-05-18] MEDS: pantoprazole 40mg Tablet.DR PO SCH (10:18)
[2018-05-18] MEDS: busPIRone 15mg tablet PO SCH ×2 (10:18→21:11)
[2018-05-18] MEDS: clonazePAM 1mg tablet PO SCH ×3 (10:19→23:16)
[2018-05-18] MEDS: lactobacillus rhamnosus 10,000 MMU CELLS/CAPSULE PO SCH ×2 (10:19→21:06)
[2018-05-18] MEDS: nystatin 500,000 unit/5ML UD oral suspension PO SCH ×3 (10:20→23:07)
[2018-05-18] MEDS: metoprolol tartrate 25mg tablet PO SCH (10:20)
[2018-05-18] MEDS: FLUoxetine 20mg capsule PO SCH (10:21)
[2018-05-18] MEDS: carbidoba-levodopa 25-100mg tablet PO SCH ×3 (10:21→21:07)
[2018-05-18] MEDS: predniSONE 20 mg tablet PO SCH ×2 (10:28→20:00)
[2018-05-18] MEDS: heparin, porcine 5000 units/ml vial SQ SCH ×2 (10:31→20:00)
[2018-05-18 12:34] VITALS: BP 126/60
[2018-05-18] MEDS: levoFLOXACIN 500mg tablet PO SCH (13:19)
[2018-05-18] MEDS: acetaminophen 325mg tablet PO PRN ×2 (14:54→23:07)
[2018-05-18] MEDS: ipratropium/albuterol 3ml nebule NEB PRN (19:35)
[2018-05-18 20:00] VITALS: BP 105/45
[2018-05-18] MEDS: doxepin 25mg capsule PO SCH (23:04)
[2018-05-18] MEDS: OLANZapine 5mg rapidly disint. tablet PO SCH (23:07)
[2018-05-19] VITALS: BP 131/61
[2018-05-19] MEDS: LIDOcaine 5% patch TP SCH (00:49)
[2018-05-19] MEDS: K and/or MAG REPLACEMENT MC SCH (07:47)
[2018-05-19 07:50] VITALS: BP 118/55
[2018-05-19] MEDS: FLUoxetine 20mg capsule PO SCH (07:57)
[2018-05-19] MEDS: pantoprazole 40mg Tablet.DR PO SCH (07:57)
[2018-05-19] MEDS: lactobacillus rhamnosus 10,000 MMU CELLS/CAPSULE PO SCH (07:57)
[2018-05-19] MEDS: clonazePAM 1mg tablet PO SCH ×2 (07:58→12:29)
[2018-05-19] MEDS: carbidoba-levodopa 25-100mg tablet PO SCH ×2 (07:58→12:29)
[2018-05-19] MEDS: busPIRone 15mg tablet PO SCH (07:58)
[2018-05-19] MEDS: heparin, porcine 5000 units/ml vial SQ SCH (07:58)
[2018-05-19] MEDS: predniSONE 20 mg tablet PO SCH (07:58)
[2018-05-19] MEDS: metoprolol tartrate 25mg tablet PO SCH (07:59)
[2018-05-19] MEDS: nystatin 500,000 unit/5ML UD oral suspension PO SCH ×2 (09:50→12:29)
[2018-05-19] MEDS: levoFLOXACIN 500mg tablet PO SCH (11:29)
[2018-05-19 11:40] VITALS: BP 126/67
== END 2018-05-19 13:53 | DRG 871 ==
LOC: ER 15:06 → ED HOLD 17:14 → EDBEDREQ 18:24 → SUR 3N 19:08
PROVIDERS: ADMIT Internal Medicine; ATTEND Family Medicine
PROC: CB121ZZ Planar Nuclear Medicine Imaging of Lungs and Bronchi using Technetium 99m (Tc-99m) (ICD-10-PCS; principal; 2018-05-11)
DX: A41.9 Sepsis, unspecified organism (principal); J96.01 Acute respiratory failure with hypoxia; J18.1 Lobar pneumonia, unspecified organism; E27.1 Primary adrenocortical insufficiency; J44.0 Chronic obstructive pulmonary disease with (acute) lower respiratory infection; G90.50 Complex regional pain syndrome I, unspecified; G20 Parkinson's disease; I10 Essential (primary) hypertension; I25.10 Atherosclerotic heart disease of native coronary artery without angina pectoris; Z60.2 Problems related to living alone; K21.9 Gastro-esophageal reflux disease without esophagitis; M79.7 Fibromyalgia; Z96.642 Presence of left artificial hip joint; G43.909 Migraine, unspecified, not intractable, without status migrainosus; Z66 Do not resuscitate; D50.9 Iron deficiency anemia, unspecified; M54.9 Dorsalgia, unspecified; T38.0X5A Adverse effect of glucocorticoids and synthetic analogues, initial encounter; F41.9 Anxiety disorder, unspecified; F32.9 Major depressive disorder, single episode, unspecified; G62.9 Polyneuropathy, unspecified; Z88.2 Allergy status to sulfonamides; Z88.8 Allergy status to other drugs, medicaments and biological substances; Z91.041 Radiographic dye allergy status; Z91.013 Allergy to seafood; Z88.6 Allergy status to analgesic agent; Z79.899 Other long term (current) drug therapy; Z98.891 History of uterine scar from previous surgery; Z85.830 Personal history of malignant neoplasm of bone; Z86.73 Personal history of transient ischemic attack (TIA), and cerebral infarction without residual deficits; Z87.442 Personal history of urinary calculi; Z82.3 Family history of stroke; Z80.9 Family history of malignant neoplasm, unspecified; Z83.3 Family history of diabetes mellitus; Z82.49 Family history of ischemic heart disease and other diseases of the circulatory system; Y92.89 Other specified places as the place of occurrence of the external cause
CPT/HCPCS: 36415; 36600; 71045; 71250; 78582; 80048; 80053; 82803; 83735; 83880; 84484; 85018; 85025; 85379; 85610; 85730; 87070; 93005; 93306; 94640; 94760; 97110; 97116; 97162; 97530; 99285; A9539; A9540; J0456; J0696; J1170; J1644; J2405; J2543; J2920; J2930; J7030; J7512